=== PATIENT | male | born 1980 | race Caucasian/White ===

== ENCOUNTER 2016-06-26 14:17 | Inpatient (IN) | payer OTHER ==
--- NOTE | ~2016-06-26 | DS ---
Unit #: [id number] #: [id number] Patient: JOLANTA ROD [id number] [facility] [address]. [place], [place] [address] [id number] MR#: [id number] NAME: JOLANTA ROD. ROOM: 308 Age: 36 Sex: M Admission Date: 06/26/2016 : 1980 Discharge Date: 06/28/2016 Attending Physician: Glenis Del Castillo M.D. Primary Care Physician: Rossy Field M.D. DISCHARGE SUMMARY REASON FOR ADMISSION Suicidal intention, intentional Thorazine overdose, superficial self-induced lacerations on the right forearm. HISTORY OF PRESENT ILLNESS/HOSPITAL COURSE The patient is a 36-year-old male with an underlying history of anxiety, depression, peptic ulcer disease. Apparently was admitted after he got into an argument with his girlfriend. He was became very upset, decided that he wished to take an unclear amount of Thorazine. He states approximately 40 tablets. At the same time he also began cutting his right forearm saying that he no longer wished to live. Therefore, he was going to be taken to [facility] by the EMS services, however, after review and consideration of his Thorazine overdose and hypotension he was subsequently transferred to [facility]. He was given Narcan en route without much improvement. He was also given 2 L of normal saline in the emergency room. His blood pressure initially was 105/69. Through hospital course, his appropriate laboratory studies were assessed and within normal range. His BNP is relatively unremarkable. His blood pressure has remained stable with copious IV fluids. We placed consultation to Dr. Jones who recommended transfer to [facility] after medically stable and the present time he is and therefore, appropriate arrangements will be made for him to be transferred later this afternoon. FINAL DISCHARGE DIAGNOSES 1. Thorazine overdose. 2. Suicidal attempt. 3. Superficial lacerations over right forearm. 4. Ongoing substance abuse/prior history. 5. Hypotension on admission, likely secondary to sedative nature of Thorazine now resolved. FINAL DISCHARGE MEDICATIONS 1. Bactrim and topical b.i.d. to right forearm. 2. Nicotine transdermal 21 mg patch q. 24. DISCHARGE DISPOSITION [facility] for ongoing care. Dictated by... Glenis Del Castillo M.D. Unit #: [id number] #: [id number] Patient: JOLANTA ROD Judith ISFord/lucy TD: 06/28/2016 11:59 JOB #: [id number] DISCHARGE SUMMARY X Glenis Del Castillo MD X DISCHARGE SUMMARY
--- NOTE | ~2016-06-26 | CR72 ---
[facility] A Service of [facility] RADIOLOGY TEXT RESULTS PATIENT: JOLANTA ROD LOCATION: [facility] 308-01 : [birth year] UNIT #: [id number] AGE: [address]: Glenis Del Castillo MD SEX: M ORDER DR: [id number] [facility] [address] [place], [place] [address] [id number] MR#: [id number] Acc #: [id number] NAME: JOLANTA ROD. : 1980 SEX: M STUDY DATE/TIME: 06/26/2016 14:13 UNIT: [facility] ROOM: STUDY DESCRIPTION: CR Chest Single View Portable Attending Physician: Tonio Scott M.D. Ordering Physician: Cristhian Berg M.D. Primary Care Physician: Rossy Field ([place]) MEDICAL IMAGING REPORT This report is preliminary unless electronic signature is present EXAM Portable chest, 06/26/2016 HISTORY Overdose, took four 50 mg Thorazine tablets. Complains of shortness of air, altered mental status, overdose this morning. FINDINGS Portable view of the chest demonstrates moderate lung volumes. No focal infiltrates or effusions. Questionable mild reticulonodular prominence within the mid and lower lung zones could reflect the sequela of previous granulomas disease. No acute airspace disease. Small amount of right basilar atelectasis. No effusions. Heart and mediastinum unremarkable. No visible pneumothorax. Dictated by... Ifrah Woods M.D. THIS IS AN ELECTRONICALLY VERIFIED REPORT Ifrah Woods M.D. at 06/27/2016 2:03 PM CESAR/compa TD: 06/26/2016 22:41 JOB #: [id number] CC: [facility] MEDICAL IMAGING REPORT COPY
--- NOTE | ~2016-06-26 | EKG ---
PATIENT: JOLANTA ROD UNIT #: [id number] Ventricular Rate: 97 BPM Atrial Rate: 97 BPM P-R Interval: 112 ms QRS Duration: 82 ms Q-T Interval: 372 ms QTC Calculation(Bezet): 472 ms P [place]: 51 degrees Calculated R [place]: 38 degrees Calculated T [place]: 24 degrees Diagnosis Line: Normal sinus rhythm Diagnosis Line: Normal ECG Diagnosis Line: No previous ECGs available Diagnosis Line: Confirmed by BASIM MCFARLAND MD ([id number]) on Diagnosis Line: 06/27/2016 11:24:10 AM INTERPRETING MD: BARTOLO RAMÍREZ
--- NOTE | ~2016-06-26 | CO ---
Unit #: [id number] #: [id number] Patient: JOLANTA ROD [id number] [facility] [address] [facility]. [place], [place] [address] [id number] I MR#: [id number] NAME: JOLANTA ROD. ROOM: 308 Age: 36 Sex: M Admission Date: 06/26/2016 : 1980 Attending Physician: Glenis Del Castillo M.D. Primary Care Physician: Rossy Field ([place]) Consultation Date: 06/27/2016 CONSULTATION REPORT REASON FOR CONSULTATION Overdose, cutting himself. HISTORY OF PRESENT ILLNESS Jolanta Stallworth is a 36-year-old male, seen on 06/27/2016 in room 308 at [facility] on 06/27/2016. The patient was compliant and cooperative, but somewhat sleepy and drowsy. The patient admitted cutting himself last night. Reported that he wanted to get attention. The patient also admitted taking overdose of his pills. According to staff, the patient at the time of admission was very drowsy, unable to talk much, and reported he took 4 Thorazine pills to get attention. The patient's right hand was also bandaged and reported that he cut himself. The patient reported that he was trying to get attention from his girlfriend. The patient was hopeless, worthless, sad, depressed at the time of admission, poor historian, anxious, nervous, withdrawn. The patient lives with his girlfriend. Reports that he goes to Dr. Chaidez and prescribed Klonopin and Prozac. The patient has a history of amphetamine use disorder and mood disorder. The patient has a sitter at this time and on 72-hour hold. PAST PSYCHIATRIC HISTORY Remarkable for history of depression, anxiety disorder, amphetamine use disorder, moderate. MEDICAL HISTORY Remarkable for peptic ulcer disease with one hernia repair. CURRENT MEDICATIONS Klonopin 1 mg t.i.d., Zoloft 25 mg daily. FAMILY HISTORY AND SOCIAL HISTORY The patient lives with a girlfriend. History of methamphetamine abuse as mentioned above. Urine drug screen is positive for amphetamine and TCA. No history of any abuse. REVIEW OF SYSTEMS Complete review of systems unremarkable. MENTAL STATUS EXAMINATION General appearance, the patient dressed in hospital attire. The patient's right arm was bandaged. Attention span and concentration, poor. Speech, slow. Orientation in place. Mood and affect were labile. Thought process, circumstantial. Thought content, guarded and paranoid. The patient denied any thoughts of harming self or others, but gives a Unit #: [id number] #: [id number] Patient: JOLANTA ROD self-harming behavior yesterday by taking pills and cutting himself. Somewhat guarded, paranoid, drowsy. Recent and remote memory, poor. Language, the patient has a fair language. Fund of knowledge is intact. Insight and judgment, impaired. DIAGNOSES Psychiatric: Major depressive disorder, recurrent, severe, F33.2; amphetamine use disorder, severe, F15.20. Secondary diagnosis: Deferred. Medical diagnosis: Please refer to H and P. Stressors: Psychosocial stressors. ASSESSMENT/PLAN 1. Supportive psychotherapy and psychoeducation were provided to the patient. 2. Educated about benefits and side effects of medication and course and prognosis of illness. 3. The patient is unable to comprehend much. 4. Advised at this time to continue with a sitter one-on-one for the patient's safety and advised to transfer the patient to [facility] for psychiatric stabilization. Please feel free to call if any questions, telephone #[phone]. Dictated by... Deshawn Marr/nae TD: 06/28/2016 08:27 JOB #: [id number] CONSULTATION REPORT X Aldair Jones MD X CONSULTATION REPORT
--- NOTE | ~2016-06-26 | HP ---
Unit #: [id number] #: [id number] Patient: JOLANTA ROD [id number] [address] [place], [place] [address] [id number] I MR#: [id number] NAME: JOLANTA ROD. ROOM: 90903 Age: 36 Sex: M Admission Date: 06/26/2016 : 1980 Attending Physician: Wandy Gagnon M.D. Primary Care Physician: Rossy Field ([place]) HISTORY AND PHYSICAL CHIEF COMPLAINT Intentional Thorazine overdose and superficial self-induced lacerations right forearm. HISTORY OF PRESENT ILLNESS This 36-year-old male with history of anxiety, depression, peptic ulcer disease, is admitted after a Thorazine overdose. Apparently, the patient had an argument with his girlfriend at some point in time. Around 8 a.m. today, he took an unknown amount of his girlfriend's Thorazine 50 mg each. I am told it was six tablets but the patient states it was more than six tablets. He also made superficial lacerations over his right forearm. He was brought to this emergency department at about 1 p.m. this afternoon. [facility], initially patient was going to be sent to [facility]. However, he became increasingly lethargic in the ER, with at times decreased respirations and hypotension. He was given 2 mg of IV Narcan without much improvement. He was given 2 liters of saline. Currently, he is somnolent but is arousable and was able to give a history. He states that he did the above for attention, that he is not currently suicidal. His blood pressure is improved to 105/69. PAST MEDICAL HISTORY 1. Anxiety and depression. 2. Peptic ulcer disease. 3. Inguinal hernia repair. ALLERGIES None. HOME MEDICATIONS 1. Klonopin 1 mg t.i.d. 2. Zoloft 25 mg daily. Urine toxicology screen is positive for amphetamines and TCA only. SOCIAL HISTORY The patient lives with his girlfriend and her friends. He smokes about a pack per day of tobacco and does not drink alcohol. He denies illicit drug use although he does have a positive urine toxicology screen. FAMILY HISTORY Positive for psychiatric disorder. Unit #: [id number] #: [id number] Patient: JOLANTA ROD REVIEW OF SYSTEMS Difficult to obtain as patient is somnolent, I have to prompt him to answer my questions. PHYSICAL EXAMINATION VITAL SIGNS: Temperature 97.2, pulse 87, respirations 9 initially but have improved, blood pressure 92/66, O2 saturation 95% on room air. GENERAL: 36-year-old male who is somnolent but arousable. HEENT: Pupils are constricted. Pharynx benign. NECK: Supple without adenopathy or thyromegaly. CHEST: Clear. HEART: Normal S1, S2 without S3, S4 or murmur. ABDOMEN: Bowel sounds are present. No hepatosplenomegaly, tenderness or masses. EXTREMITIES: Without edema. Pedal pulses are present. There are multiple superficial lacerations over the right forearm. NEUROLOGIC: Patient is somnolent but arousable. Cranial nerves II-XII intact. He has equal strength throughout. DIAGNOSTIC STUDIES LABORATORY: Hematocrit 43, normal white count and platelet count. SMA-12 normal. Acetaminophen, salicylate and alcohol levels are negligible. Urine toxicology screen positive for amphetamines and TCA. IMAGING: Chest x-ray no acute disease. CARDIOVASCULAR: EKG normal sinus rhythm, rate 97, normal appearing. ASSESSMENT 1. Intentional Thorazine overdose. I am unsure of the amount. The patient states that he took "a bunch of pills" from his girlfriend. ER sheet makes mention of six tablets of Thorazine 50 mg each. Despite many hours in the ER, patient remains fairly somnolent. Intermittently has decreased respirations and intermittent hypotension. 2. Superficial self-induced lacerations, right forearm. 3. History of anxiety and depression, for which the patient reports he takes Klonopin and Zoloft but urine toxicology screen is positive for other substances. PLAN 1. IV fluids and monitor until more awake and alert. 2. 72-hour hold with one-to-one sitter. 3. Bactroban ointment right forearm. 4. [facility] to see in the morning. Dictated by Wandy Gagnon M.D. GANGA/cs TD: 06/26/2016 23:00 JOB #: [id number] Unit #: [id number] #: [id number] Patient: JOLANTA ROD HISTORY AND PHYSICAL X Wandy Gagnon MD X HISTORY AND PHYSICAL
[~2016-06-26 14:17] MED LIST: PEN-VEE K PO; PHENERGAN SUPP25 M1 PR; PHENERGAN25 M1 PO; PRILOSEC20 M1 PO; VOLTAREN75 MG PO
[2016-06-26 14:46] LABS: BASOPHIL% 0.4 % (0-2.5); EOSINOPHIL# 0.1 X10e3 (0-0.7); EOSINOPHIL% 1.7 % (0.0-7.0); HEMOGLOBIN 14.6 gm/dL (13.0-16.0); LYMPHOCYTE% 34.6 % (17.0-45.0); MEAN CELL VOLUME 92.5 FL (83-96); MEAN CORPUSCULAR HEMOGLOBIN 31.4 PG (28-34); MEAN CORPUSCULAR HGB CONC 33.9 g/dL (30-36); MEAN PLATELET VOLUME 8.5 FL (6.5-11.5); MONOCYTE# 0.5 X10e3 (0-1.0); MONOCYTE% 6.3 % (3.0-12.0); PLATELET COUNT 250 X10e3 (140-420); RED BLOOD COUNT 4.65 X10e (3.90-5.60); RED CELL DISTRIBUTION WIDTH 13.8 % (11.0-15.5); WHITE BLOOD COUNT 8.8 X10e3 (4.0-10.5)
[2016-06-26 14:47] LABS: DIFF IND NO
[2016-06-26 15:11] LABS: ALBUMIN SERUM 3.6 g/dL (3.5-5.0); ALKALINE PHOSPHATASE 63 U/L (32-92); ALT (SGPT) 33 U/L (10-40); AST (SGOT) 19 U/L (10-42); BILIRUBIN, DIRECT 0.1 mg/dL (0.0-0.2); BILIRUBIN,INDIRECT 0.5 mg/dL (0.0-0.9); BILIRUBIN,TOTAL 0.6 mg/dL (0.2-2.0); BLOOD UREA NITROGEN 15 mg/dL (9-23); BUN/CREATININE RATIO 16.66; CARBON DIOXIDE 24 mmol/L (22-31); CHLORIDE 105 mmol/L (100-111); CREATININE SERUM 0.9 mg/dL (0.6-1.4); GLOM FILT RATE Estimated ABOVE60 mL/min (>60); GLUCOSE FASTING 97 mg/dL (70-110); POTASSIUM 3.7 mmol/L (3.5-5.1); PROTEIN TOTAL SERUM 6.4 g/dL (6.0-8.3); SALICYLATE <4.0 mg/dL; SODIUM 139 mmol/L (135-145)
[2016-06-26 15:14] LABS: ACETAMINOPHEN <10 ug/mL; ALCOHOL BLOOD <5 mg/dL (0)
[2016-06-26 15:49] LABS: AMPHETAMINE POS (NEG); BARBITURATES NEG (NEG); BENZODIAZEPINES NEG (NEG); COCAINE NEG (NEG); MARIJUANA NEG (NEG); OPIATES NEG (NEG); TRICYCLIC ANTIDEPRESSANTS POS (NEG); U METHADONE NEG (NEG)
[2016-06-26] MEDS ORDERED: NO MEDICATIONS (22:02)
[2016-06-27 06:29] LABS: BASOPHIL% 0.2 % (0-2.5); EOSINOPHIL# 0.2 X10e3 (0-0.7); EOSINOPHIL% 2.1 % (0.0-7.0); HEMOGLOBIN 13.8 gm/dL (13.0-16.0); LYMPHOCYTE# 2.7 X10e3 (1.0-3.5); LYMPHOCYTE% 23.2 % (17.0-45.0); MEAN CORPUSCULAR HEMOGLOBIN 30.5 PG (28-34); MEAN CORPUSCULAR HGB CONC 32.8 g/dL (30-36); MEAN PLATELET VOLUME 8.4 FL (6.5-11.5); MONOCYTE# 0.5 X10e3 (0-1.0); MONOCYTE% 4.5 % (3.0-12.0); NEUTROPHIL# 8.3 X10e3 (1.5-7.1); PLATELET COUNT 233 X10e3 (140-420); RED BLOOD COUNT 4.52 X10e (3.90-5.60); RED CELL DISTRIBUTION WIDTH 13.5 % (11.0-15.5); WHITE BLOOD COUNT 11.9 X10e3 (4.0-10.5)
[2016-06-27 06:35] LABS: DIFF IND NO
[2016-06-27 06:38] LABS: ALKALINE PHOSPHATASE 53 U/L (32-92); ALT (SGPT) 27 U/L (10-40); AST (SGOT) 13 U/L (10-42); BILIRUBIN,TOTAL 0.7 mg/dL (0.2-2.0); BLOOD UREA NITROGEN 10 mg/dL (9-23); CALCIUM SERUM 8.2 mg/dL (8.4-10.2); CARBON DIOXIDE 24 mmol/L (22-31); CHLORIDE 117 mmol/L (100-111); CREATININE SERUM 0.8 mg/dL (0.6-1.4); GLOM FILT RATE Estimated ABOVE60 mL/min (>60); GLUCOSE FASTING 79 mg/dL (70-110); POTASSIUM 3.8 mmol/L (3.5-5.1); PROTEIN TOTAL SERUM 5.4 g/dL (6.0-8.3); SODIUM 140 mmol/L (135-145)
[2016-06-28 06:27] LABS: HEMATOCRIT 42.4 % (38.0-50.0); MEAN CELL VOLUME 93.4 FL (83-96); MEAN CORPUSCULAR HEMOGLOBIN 30.8 PG (28-34); MEAN PLATELET VOLUME 8.9 FL (6.5-11.5); RED BLOOD COUNT 4.54 X10e (3.90-5.60); RED CELL DISTRIBUTION WIDTH 13.5 % (11.0-15.5); WHITE BLOOD COUNT 8.2 X10e3 (4.0-10.5)
[2016-06-28 07:04] LABS: BLOOD UREA NITROGEN 12 mg/dL (9-23); BUN/CREATININE RATIO 17.14; CALCIUM SERUM 8.8 mg/dL (8.4-10.2); CARBON DIOXIDE 23 mmol/L (22-31); CHLORIDE 111 mmol/L (100-111); CREATININE SERUM 0.7 mg/dL (0.6-1.4); GLOM FILT RATE Estimated ABOVE60 mL/min (>60); GLUCOSE FASTING 79 mg/dL (70-110); MAGNESIUM 1.8 mg/dL (1.6-3.0); SODIUM 142 mmol/L (135-145)
== END 2016-06-28 13:36 | DRG 918 ==
LOC: CED 14:17 → CEDOF 22:50 → C3A PCU 06-27 00:53
PROVIDERS: Emergency Medicine; Family Medicine; Internal Medicine
DX: T43.3X2A Poisoning by phenothiazine antipsychotics and neuroleptics, intentional self-harm, initial encounter (principal); F33.2 Major depressive disorder, recurrent severe without psychotic features; F15.20 Other stimulant dependence, uncomplicated; S51.811A Laceration without foreign body of right forearm, initial encounter; F41.9 Anxiety disorder, unspecified; Z87.11 Personal history of peptic ulcer disease; F17.210 Nicotine dependence, cigarettes, uncomplicated
CPT/HCPCS: 36415; 71010; 80048; 80053; 80076; 80307; 82947; 83735; 84443; 85025; 85027; 93005; 96361; 96374; 99285; G0480; J2310

== ENCOUNTER 2016-06-28 14:02 | Inpatient (IN) | payer OTHER ==
--- NOTE | ~2016-06-28 | PN ---
Unit #: [id number] #: [id number] Patient: JOLANTA ROD [id number] [facility] [address] [place] [address] [id number] I MR#: [id number] NAME: JOLANTA ROD. ROOM: [facility] Age: 36 Sex: M Admission Date: 06/28/2016 : 1980 Attending Physician: Aldair Jones M.D. Admitting Physician: Aldair Jones M.D. Primary Care Physician: Rossy PENG ([place]) PROGRESS NOTES DATE OF SERVICE: 06/29/2016 DISCUSSION Jolanta is a 36-year-old male, seen on 06/29/2016. The patient interviewed, chart reviewed, and obtained information from nursing staff. The patient was compliant, cooperative. Mood is sad, dysphoric, flat affect, guarded. The patient's vital signs are temperature 97.7, pulse 70, respirations 21, blood pressure 109/64. REVIEW OF SYSTEMS Complete review of systems is unremarkable. MENTAL STATUS EXAMINATION General appearance; the patient dressed casually. Attention span and concentration, fair. Oriented in place and person. Mood and affect; sad and depressed. Speech, monotone. Thought process, concrete. The patient denied any thoughts of harming self or others, but withdrawn, isolative, guarded, flat affect, passive SI. Denied any homicidal ideation. Recent and remote memory, poor. Insight and judgment, poor. DIAGNOSIS Mood disorder, not otherwise specified. ASSESSMENT AND PLAN Advised to continue with current medication. The patient is on Klonopin, trazodone, Zoloft. If needed, consider further adjustment of medication such as increasing Zoloft to 50 mg. Dictated by... Deshawn Marr/nae TD: 06/30/2016 07:07 JOB #: [id number] Unit #: [id number] #: [id number] Patient: JOLANTA ROD [facility] PROGRESS NOTES X Aldair Jones MD PROGRESS NOTE
--- NOTE | ~2016-06-28 | PN ---
Unit #: [id number] #: [id number] Patient: JOLANTA ROD [id number] [facility] [address] [place] [address] [id number] I MR#: [id number] NAME: JOLANTA RDO. ROOM: 32 Age: 36 Sex: M Admission Date: 06/28/2016 : 1980 Attending Physician: Aldair Jones M.D. Admitting Physician: Aldair Jones M.D. Primary Care Physician: Rossy PENG ([place]) PROGRESS NOTES DATE 07/01/2016 DISCUSSION Jolanta is a 36-year-old male, seen on 07/01/2016. The patient interviewed, chart reviewed, and obtained information from nursing staff. The patient is tolerating medication fairly well. No side effects from medication. The patient is currently on Zoloft, Klonopin, and trazodone. Complete review of systems unremarkable. MENTAL STATUS EXAMINATION General appearance, the patient dressed casually. Attention span and concentration, fair. Oriented in place and person. Mood and affect, labile. Speech, regular rate. Thought process, goal directed. The patient denied any thoughts of harming self or others or any psychotic symptom. Recent and remote memory, poor. Insight and judgment, poor. DIAGNOSIS Mood disorder, not otherwise specified. ASSESSMENT AND PLAN Advised to continue with current medication and therapeutic protocol. We will monitor response to medication and make further adjustment of medication. Dictated by... Deshawn Marr/nae TD: 07/02/2016 12:05 JOB #: [id number] Unit #: [id number] #: [id number] Patient: JOLANTA RODJORDYN PROGRESS NOTES Page 1 of 1 X Aldair Jones MD X PROGRESS NOTE
--- NOTE | ~2016-06-28 | PN ---
Unit #: [id number] #: [id number] Patient: JOLANTA ROD [id number] [facility] [address] [place] [address] [id number] I MR#: [id number] NAME: JOLANTA ROD. ROOM: [facility] Age: 36 Sex: M Admission Date: 06/28/2016 : 1980 Attending Physician: Aldair Jones M.D. Admitting Physician: Aldair Jones M.D. Primary Care Physician: Rossy PENG ([place]) PROGRESS NOTES DATE 06/30/2016 DISCUSSION Jolanta is a 36-year-old male seen on 06/30/2016. The patient interviewed, chart reviewed. Obtained information from nursing staff. The patient was compliant and cooperative, withdrawn, isolative, guarded, passive suicidal ideation. Complete review of systems unremarkable. MENTAL STATUS EXAMINATION General appearance, the patient dressed casually. Attention span and concentration fair to poor. Oriented to place and person. Mood and affect sad, depressed, withdrawn. Speech monotone. Thought process concrete. The patient denied any suicidal ideation but having passive suicidal ideation, guarded. Recent and remote memory poor. Insight and judgement poor. DIAGNOSES Mood disorder NOS ASSESSMENT/PLAN Advise to continue with current medication and therapeutic protocol. If needed consider further adjustment of medication. Dictated by... Deshawn Marr/mee TD: 07/02/2016 02:54 JOB #: [id number] PEAJORDYN PROGRESS NOTES X Aldair Jones MD PROGRESS NOTE
--- NOTE | ~2016-06-28 | DS ---
Unit #: [id number] #: [id number] Patient: JOLANTA ROD [id number] [facility] [address] [place] [address] [id number] I MR#: [id number] NAME: JOLANTA ROD. ROOM: [facility] Age: 36 Sex: M Admission Date: 06/28/2016 : 1980 Discharge Date: 07/02/2016 Attending Physician: Aldair Jones M.D. Primary Care Physician: Rossy Field ([place]) DISCHARGE SUMMARY REASON FOR ADMISSION Suicidal ideation. DIAGNOSTIC STUDIES LABORATORY RESULTS: Remarkable for total protein 5.4, albumin 3.0. Urine drug screen is positive for amphetamine. HOSPITAL COURSE The patient was admitted to inpatient unit on 06/28/2016 and discharged on 07/02/2016. The patient was treated on the inpatient unit with group therapy, individual therapy, medication management. The patient responded well with the above modalities of treatment and following medication; trazodone, Klonopin, and Zoloft. The patient was on this medication before. Subsequently, the patient was discharged with a plan to follow up in outpatient program. DISCHARGE MEDICATIONS Klonopin 0.5 mg t.i.d. for anxiety, Zoloft 50 mg daily for mood stabilization, and trazodone 50 mg at bedtime for sleep. DISCHARGE DIAGNOSES Psychiatric: 1. Mood disorder, not otherwise specified. 2. Anxiety disorder, not otherwise specified. Secondary diagnosis: Deferred. Medical diagnosis: None. Stressors: Psychosocial stressors. DISCHARGE INSTRUCTIONS The patient to follow up in outpatient clinic as per social insurance analyst. CONDITION ON DISCHARGE The patient was pleasant and cooperative. Denied any psychotic symptom or any suicidal ideation. PROGNOSIS Guarded. DIET AND ACTIVITY As tolerated. Unit #: [id number] #: [id number] Patient: JOLANTA ROD Dictated by... Aldair Jones M.D. SZC/victor ml TD: 07/03/2016 06:18 JOB #: [id number] DISCHARGE SUMMARY Page 1 of 1 X Aldair Jones MD X DISCHARGE SUMMARY
--- NOTE | ~2016-06-28 | PA ---
Unit #: [id number] #: [id number] Patient: JOLANTA ROD [id number] [facility] [address] [place] [address] [id number] I MR#: [id number] NAME: JOLANTA ROD. ROOM: [facility] Age: 36 Sex: M Admission Date: 06/28/2016 : 1980 Date of Assessment: Attending Physician: Aldair Jones M.D. Admitting Physician: Aldair Jones M.D. Primary Care Physician: Rossy Field ([place]) PSYCHIATRIC ASSESSMENT INFORMANTS The patient reliability, fair; chart reliability, good. CHIEF COMPLAINT Depression. HISTORY OF PRESENT ILLNESS Mr. Garcia is a 36-year-old male, presented with depressive symptom, suicidal ideation. The patient reported taking two 850 mg Thorazine and putting about 5 superficial cuts on his right arm. The patient reported that he wanted to get attention. The patient reported that his girlfriend got into an argument. The patient reported living with girlfriend and reported technically homeless. The patient tested positive for meth and TCA. The patient also reported taking 5 Adderall 5 days ago, but reported poor impulse control and needing inpatient admission at this time for psychiatric stabilization. PAST PSYCHIATRIC HISTORY Remarkable for history of previous treatment, details unknown at this time. FAMILY HISTORY AND SOCIAL HISTORY Unremarkable. MEDICAL HISTORY Unremarkable for any chronic medical condition. Musculoskeletal; muscle strength and tone, no atrophy or abnormal movement. Gait normal. MEDICATIONS The patient is on Klonopin 0.5 mg t.i.d., Zoloft 25 mg in the morning. ALLERGIES No known drug allergies. SUBSTANCE ABUSE HISTORY None. REVIEW OF SYSTEMS HEENT: Eyes, clear. Ears, nose, mouth, and throat; clear. CARDIOVASCULAR: Unremarkable. RESPIRATORY: Unremarkable GI: Unremarkable. : Unremarkable. SKIN: Unremarkable. Unit #: [id number] #: [id number] Patient: JOLANTA ROD LYMPH NODE: Unremarkable. NEUROLOGIC: Unremarkable. ENDOCRINE: Unremarkable. HEMATOLOGIC: Unremarkable. ALLERGIC/IMMUNOLOGIC: Unremarkable. MUSCULOSKELETAL: Muscle strength and tone, no atrophy or abnormal movement. Gait normal. MENTAL STATUS EXAMINATION CONSTITUTIONAL: Measurement of vital signs; temperature is 98.7, pulse 81, respirations 20, blood pressure 76/54, height 5 feet 9 inches, weight 206 pounds. GENERAL APPEARANCE: The patient dressed casually. The patient did not show any facial deformity. PSYCHIATRIC EXAMINATION Description of speech; regular rate, normal volume. Description of thought process, goal directed. The patient's association, intact. Description of abnormal psychotic thinking, denied any hallucination or delusions, but mood lability. Description of the patient's judgment, concerning everyday activity, poor. Social situation, poor. Concerning psychiatric condition, poor. Complete mental status examination; oriented in time, place, and person. Recent and remote memory, fair. Attention span and concentration, fair. Language, able to name object, repeat phrases. Fund of knowledge, aware of current event, passive vocabulary intact. Mood and affect, sad and dysphoric. Insight and judgment, fair to poor. ASSETS AND LIABILITIES Assets; the patient articulate, able to take care of his ADL. Liability; history of depression, substance abuse. ADMITTING DIAGNOSES Psychiatric: Mood disorder, not otherwise specified, F32.9; anxiety disorder, not otherwise specified, F41.9. Secondary diagnosis: Deferred. Medical diagnosis: None. Stressors: Psychosocial stressors. PSYCHIATRIC PLAN AND TREATMENT GOAL 1. Advised to admit the patient on the inpatient unit. Provide safe, supportive, and structured environment. 2. Ordered labs; CBC, CMP, UA, and UDS. 3. Precaution for self-harm. 4. The patient to attend all the programming group therapy, individual therapy, medication management. Resume the patient's home medication. If needed, consider further adjustment of medication. Treatment goal to attain euthymic mood, gain insight into his problem, and learn coping skills. DISCHARGE PLAN Plan to stabilize the patient and consider followup in outpatient program. ESTIMATED LENGTH OF STAY Unit #: [id number] #: [id number] Patient: VIOLAJOLANTA 5 days. Dictated by... Aldair Jones M.D. RAGINI/nae TD: 07/03/2016 06:11 JOB #: [id number] PSYCHIATRIC ASSESSMENT Page 1 of 1 X Aldair Jones MD PSYCHIATRIC ASSESSMENT
--- NOTE | ~2016-06-28 | HP ---
Unit #: [id number] #: [id number] Patient: JOLANTA ROD [id number] [facility] [address] [place] [address] [id number] MR#: [id number] NAME: JOLANTA ROD. ROOM: 32 Age: 36 Sex: M Admission Date: 06/28/2016 : 1980 Attending Physician: Aldair Jones M.D. Admitting Physician: Aldair Jones M.D. Primary Care Physician: Rossy Field (Colbert) HISTORY AND PHYSICAL HISTORY OF PRESENT ILLNESS The patient is a 36 year old admitted to [address] [place] [address] after an intentional overdose of Thorazine. He was admitted to [facility] on 06/26/2016, and when medically stable transfer to [facility] for psychiatric care. The patient was seen and H and P dated 06/26/2016 was reviewed. This is current. No changes. Please see H and P dated 06/26/2016. Dictated by... Alina Leyva P.A.-C. for Deshawn Cornell/romaine TD: 06/30/2016 11:18 JOB #: [id number] HISTORY AND PHYSICAL X Alina Leyva HISTORY AND PHYSICAL
[~2016-06-28 14:02] MED LIST changes: +NO MEDICATIONS
== END 2016-07-02 11:35 | disposition home or self-care (01) | DRG 885 ==
LOC: P1S 14:02
DX: F39 Unspecified mood [affective] disorder (principal); R45.851 Suicidal ideations; F41.9 Anxiety disorder, unspecified